=== PATIENT | female | born 1955 | race American Indian/Alaskan Native ===

== ENCOUNTER 2018-01-28 13:19 | Outpatient (CLI) | payer BC ==
--- NOTE | 2018-01-28 16:07 | Mammography Report ---
BILATERAL DIGITAL SCREENING MAMMOGRAM with CAD: 01/28/18 13:19:00 CLINICAL: Routine screening. COMPARISON:09/26/15 and 09/06/14 FINDINGS: The breasts are heterogeneously dense, which may obscure small masses. No mass, architectural distortion or suspicious calcifications. IMPRESSION: No mammographic evidence of malignancy. BI-RADS CATEGORY: 1 - - Negative RECOMMENDATION: Routine mammographic screening in one year. COMMENT: Patient follow-up letters are generated by our [employer] application.
== END 2018-01-28 13:20 | disposition home or self-care (01) ==
LOC: SPVWC 13:19
PROVIDERS: ATTEND Family Medicine
DX: Z12.31 Encounter for screening mammogram for malignant neoplasm of breast (principal)
CPT/HCPCS: 77067

== ENCOUNTER 2021-05-15 08:00 | Emergency (ER) | payer BC, OTHER ==
[2021-05-15 08:49] VITALS: BP 177/138
[2021-05-15] MEDS ORDERED: ONDANSETRON 4 MG/2 ML INJ IV ONE (09:07)
[2021-05-15] MEDS ORDERED: fentaNYL 100 MCG/2 ML INJ IV ONE (09:07)
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
[2021-05-15 10:43] LABS: Basophils # (Auto) 0.1 K/mm3 (0.0-0.1); Basophils % (Auto) 1.4 % (0.0-1.8); Eosinophils # (Auto) 0.4 K/mm3 (0.0-0.4); Eosinophils % (Auto) 8.5 % (0.0-4.3); Hematocrit 41.6 % (30.3-42.9); Hemoglobin 13.8 gm/dl (10.1-14.3); Lymphocytes # (Auto) 1.6 K/mm3 (1.2-5.4); Lymphocytes % (Auto) 31.2 % (13.4-35.0); Mean Corpuscular HGB Conc 33 % (30-34); Mean Corpuscular Volume 92 fl (79-97); Monocytes # (Auto) 0.5 K/mm3 (0.0-0.8); Monocytes % (Auto) 9.6 % (0.0-7.3); Platelet Count 256 K/mm3 (140-440); Red Blood Count 4.51 M/mm3 (3.65-5.03); Red Cell Distribution Width 13.9 % (13.2-15.2)
[2021-05-15 10:52] LABS: INR 0.94 (0.87-1.13)
[2021-05-15 10:53] LABS: Partial Thromboplastin Time 35.1 Sec. (24.2-36.6)
[2021-05-15 11:04] LABS: Creatine Kinase MB 3.3 ng/mL (0.0-4.0)
[2021-05-15 11:06] LABS: Blood Urea Nitrogen 12 mg/dL (7-17); Calcium 10.1 mg/dL (8.4-10.2); Hemolysis Index 4
[2021-05-15 11:07] LABS: BUN/Creatinine Ratio 20
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
--- NOTE | 2021-05-15 12:26 | Electrocardiograph Report ---
[facility] Test Date: 2021-05-15 Test Time: 09:11:22 Pat Name: LURDES SONG Department: Room: Gender: F Salesperson Shoes: JAY : 1955 Requested By: LORRI FOY Order Number: [id number] Reading MD: Liliya Burr Measurements Intervals [place] Rate: 66 P: 75 [place]: 140 QRS: 10 QRSD: 87 T: 59 QT: 412 QTc: 432 Interpretive Statements Sinus rhythm Consider old anteroseptal infarct No previous ECG available for comparison Electronically Signed On 05-15-2021 12:25:59 EST by Liliya Burr
== END 2021-05-15 12:34 | disposition home or self-care (01) ==
LOC: ED 08:00
DX: S20.219A Contusion of unspecified front wall of thorax, initial encounter (principal); R59.1 Generalized enlarged lymph nodes; M79.18 Myalgia, other site; V89.2XXA Person injured in unspecified motor-vehicle accident, traffic, initial encounter; Y93.89 Activity, other specified; Y92.488 Other paved roadways as the place of occurrence of the external cause; Y99.8 Other external cause status
CPT/HCPCS: 36415; 71275; 80048; 82550; 82553; 83690; 84484; 85025; 85610; 85730; 93005; 99284; Q9967